=== PATIENT | male | born 1985 | race Caucasian/White ===

== ENCOUNTER 2016-09-29 09:16 | Emergency (ER) | payer MEDICAID, OTHER ==
[~2016-09-29] VITALS: Ht 167.6 cm; Wt 70.0 kg
[~2016-09-29 09:16] MED LIST: BACT800T5 PO; CLIN150 PO
[2016-09-29 09:21] VITALS: BP 134/85; PULSE 95; RESP 16; TEMP 97.4; O2SAT 100
[2016-09-29] MEDS ORDERED: SODIUM CHLOR 0.9% 1000 ML INJ 1,000 ML IV SCH (09:28)
[2016-09-29] MEDS ORDERED: SODIUM CHLORIDE 0.9% FLUSH 10 ML FLUSH IV FLUSH PRN (09:30)
[2016-09-29] MEDS ORDERED: KETOROLAC TROMETHAMINE 30 MG/ML (IVP) VIAL IVP ONE (09:30)
[2016-09-29] MEDS ORDERED: ONDANSETRON HCL 4 MG/2 ML VIAL IVP ONE (09:30)
--- NOTE | 2016-09-29 09:33 | PD ---
HPI Chief Complaint: Complaint Time Seen by Provider: 09:28 Travel History International Travel<30 days: No Contact w/Intl Traveler<30days: No Traveled to known affect area: No History of Present Illness HPI 31-year-old male presents to the ER today with sudden onset of right lower quadrant pains which she currently measures and a 10 out 10 starting at 3 AM. He has been nauseous and vomited, and has had hematuria. He denies any fevers, diarrhea, or any other symptoms. He does not know any exacerbating or alleviating factors. He states the pain is constant. Modifying Factors: None Associated Signs & Symptoms: Right lower quadrant abdominal pains with nausea and vomiting, hematuria Risk Factors: None PFSH Past Medical History Autoimmune Disease: No Cardiovascular Problems: No Diminished Hearing: No Psychiatric: No Integumentary: Yes (RT KNEE CELLULITIS>CLINDAMYCIN) Immunizations Current: Yes Past Surgical History Oral Surgery: Yes (WISDOM TEETH) Other Surgery: Yes (RIGHT KNEE, RIGHT HAND) Social History Alcohol Use: Yes (DAILY) Tobacco Use: Yes (1PPD) Substance Use: No Allergies-Medications (Allergen,Severity, Reaction): Coded Allergies: Augmentin (Verified Allergy, Severe, 09/29/16) Penicillin (Verified Allergy, Severe, 09/29/16) HIVES Reported Meds & Prescriptions Reported Meds & Active Scripts Active No Active Prescriptions or Reported Medications Review of Systems Except as stated in HPI: all other systems reviewed are Neg Physical Exam Narrative GENERAL: Well-developed young white male patient currently in moderate distress secondary to pain. Awake and oriented 3. SKIN: Focused skin assessment warm/dry. HEAD: Atraumatic. Normocephalic. EYES: Pupils equal and round. No scleral icterus. No injection or drainage. ENT: No nasal bleeding or discharge. Mucous membranes pink and moist. NECK: Trachea midline. No JVD. CARDIOVASCULAR: Regular rate and rhythm. No murmur appreciated. RESPIRATORY: No accessory muscle use. Clear to auscultation. Breath sounds equal bilaterally. GASTROINTESTINAL: Abdomen soft, right lower quadrant tenderness without guarding or rebound, nondistended. Hepatic and splenic margins not palpable. GENITOURINARY: Circumcised. Testes descended bilaterally without evidence of rotation. No lesions or erythema. No urethral discharge. MUSCULOSKELETAL: No obvious deformities. No clubbing. No cyanosis. No edema. NEUROLOGICAL: Awake and alert. No obvious cranial nerve deficits. Motor grossly within normal limits. Normal speech. PSYCHIATRIC: Appropriate mood and affect; insight and judgment normal. Data Data Last Documented VS Vital Signs Date Time Temp Pulse Resp B/P Pulse Ox O2 Delivery O2 Flow Rate FiO2 09/29/16 09:36 100 09/29/16 09:21 97.4 95 16 134/85 Orders Complete Blood Count With Diff (09/29/16 09:28) Comprehensive Metabolic Panel (09/29/16:28) Lipase (09/29/16:28) Urinalysis - C+S If Indicated (09/29/16:28) Ct Abd/Pel W/O Iv Contrast (09/29/16:28) Iv Access Insert/Monitor (09/29/16:) Ecg Monitoring (09/29/16:) Oximetry (09/29/16:) Ondansetron Inj (Zofran Inj) (09/29/16 09:30) Sodium Chlor 0.9% 1000 Ml Inj (Ns 1000 M (09/29/16 09:28) Sodium Chloride 0.9% Flush (Ns Flush) (09/29/16 09:30) Ketorolac Inj (Toradol Inj) (09/29/16 09:30) Urine Culture (09/29/16 09:30) Labs Laboratory Tests Test 09/29/16 09:30 White Blood Count 6.0 TH/MM3 Red Blood Count 4.69 MIL/MM3 Hemoglobin 14.9 GM/DL Hematocrit 43.8 % Mean Corpuscular Volume 93.3 FL Mean Corpuscular Hemoglobin 31.9 PG Mean Corpuscular Hemoglobin 34.1 % Concent Red Cell Distribution Width 12.4 % Platelet Count 230 TH/MM3 Mean Platelet Volume 7.7 FL Neutrophils (%) (Auto) 74.6 % Lymphocytes (%) (Auto) 15.9 % Monocytes (%) (Auto) 7.5 % Eosinophils (%) (Auto) 0.9 % Basophils (%) (Auto) 1.1 % Neutrophils # (Auto) 4.3 TH/MM3 Lymphocytes # (Auto) 1.0 TH/MM3 Monocytes # (Auto) 0.5 TH/MM3 Eosinophils # (Auto) 0.1 TH/MM3 Basophils # (Auto) 0.1 TH/MM3 CBC Comment DIFF FINAL Differential Comment Urine Color LIGHT-ORANGE Urine Turbidity CLOUDY Urine pH 5.5 Urine Specific [place] 1.022 Urine Protein 100 mg/dL Urine Glucose (UA) NEG mg/dL Urine Ketones 80 OR GREATER mg/dL Urine Occult Blood LARGE Urine Nitrite NEG Urine Bilirubin NEG Urine Leukocyte Esterase NEG Urine RBC INNUM /hpf Urine WBC 6-8 /hpf Urine Bacteria MOD /hpf Microscopic Urinalysis Comment CULTURE INDICATED Sodium Level 137 MEQ/L Potassium Level 3.5 MEQ/L Chloride Level 101 MEQ/L Carbon Dioxide Level 15.8 MEQ/L Anion Gap 20 MEQ/L Blood Urea Nitrogen 7 MG/DL Creatinine 0.89 MG/DL Estimat Glomerular Filtration 99 ML/MIN Rate Random Glucose 152 MG/DL Calcium Level 9.8 MG/DL Total Bilirubin 0.7 MG/DL Aspartate Amino Transf 290 U/L (AST/SGOT) Alanine Aminotransferase 285 U/L (ALT/SGPT) Alkaline Phosphatase 110 U/L Total Protein 8.2 GM/DL Albumin 4.5 GM/DL Lipase 366 U/L [facility] Medical Decision Making Medical Screen Exam Complete: Yes Emergency Medical Condition: Yes Medical Record Reviewed: Yes Interpretation(s) Laboratory Tests Test 09/29/16 09:30 Neutrophils (%) (Auto) 74.6 % (16.0-70.0) Urine Color LIGHT-ORANGE (YELLW/STRAW) Urine Turbidity CLOUDY (CLEAR) Urine Protein 100 mg/dL (NEG-TRACE) Urine Ketones 80 OR GREATER mg/dL (NEG) Urine Occult Blood LARGE (NEG) Urine RBC INNUM /hpf (0-3) Urine WBC 6-8 /hpf (0-5) Urine Bacteria MOD /hpf (NONE) Carbon Dioxide Level 15.8 MEQ/L (21.0-32.0) Anion Gap 20 MEQ/L (5-15) Random Glucose 152 MG/DL (74-106) Aspartate Amino Transf 290 U/L (15-37) (AST/SGOT) Alanine Aminotransferase 285 U/L (12-78) (ALT/SGPT) Last 24 hours Impressions Abdomen/Pelvis CT 09/29/1628 Signed Impressions: Service Date/Time: Thursday, September 29, 2016 09:45 - CONCLUSION: 1. Patient's symptoms appear to be secondary to pelvocaliectasis and hydroureter of the right renal collecting system. No stone is identified, however. Did the patient recently pass a stone? 2. Diffuse hepatic fatty infiltration. 3. Prior inguinal hernia repair on the left. 4. Dystrophic type prostatic calcifications. Shamir De Paz MD Differential Diagnosis Right lower quadrant abdominal pains, nausea, vomiting, hematuriaUTI/ pyelonephritis versus renal colic versus appendicitis versus gastroenteritis Narrative Course Lab work shows mild elevations of liver enzymes of unknown etiology. However, patient does drink alcohol and has alcohol on his breath currently, may be secondary to alcohol use. Patient has been told about his liver enzyme elevations. His CAT scan is showing signs of right hydronephrosis although a kidney stone is not seen. It is possible he may have recently passed 1. At this point, my plan would be to give him symptomatic relief or pain and nausea, and have him follow-up with urologist regarding this issue. Return for any worsening in symptoms as necessary. The plan has been discussed with him and he states understanding. Diagnosis Primary Impression: Renal colic on right side Additional Impression: Elevated liver enzymes Additional Instructions: Strain urine, follow up with a urologist, and take medications as needed for discomfort. Return for any worsening in pain, fevers, vomiting, or new symptoms as needed. Med/Other Pt SpecificInfo: Prescription(s) given Scripts Alfuzosin ER 24 HR (Uroxatral ER 24 HR)10 Mg Tab10 Mg PO DAILY #7 TAB Ref 0 Prov:Elena Flynn MD 09/29/16 Ondansetron Odt (Zofran Odt)4 Mg Tab4 Mg SL Q6HR PRN (Nausea/Vomiting) #7 TAB Ref 0 Prov:Elena Flynn MD 09/29/16 Tramadol 50 Mg Tab50 Mg PO Q4H PRN (PAIN) #20 TAB Ref 0 Prov:Elena Flynn MD 09/29/16 Ibuprofen (Motrin Ib)200 Mg Uvn914 Mg PO Q6H PRN (PAIN SCALE 1 TO 10) #30 TAB Ref 0 Prov:Elena Flynn MD 09/29/16 Disposition: 01 DISCHARGE HOME Condition: Stable Elena Flynn MD Sep 29, 2016 09:33
[2016-09-29 09:36] VITALS: O2SAT 100
[2016-09-29 09:37] LABS: AUTOMATED NEUTROPHIL # 4.3 TH/MM3 (1.8-7.7); BASOPHIL # 0.1 TH/MM3 (0-0.2); BASOPHIL % 1.1 % (0.0-2.0); EOSINOPHIL # 0.1 TH/MM3 (0-0.4); EOSINOPHIL % 0.9 % (0.0-4.0); HEMATOCRIT 43.8 % (39.0-51.0); HEMO FLAGS DIFF FINAL; LYMPH % 15.9 % (9.0-44.0); MEAN CELL VOLUME 93.3 FL (80.0-100.0); MEAN CORPUSCULAR HEMOGLOBIN 31.9 PG (27.0-34.0); MEAN CORPUSCULAR HGB CONC 34.1 % (32.0-36.0); MONO % 7.5 % (0.0-8.0); NEUT % 74.6 % (16.0-70.0); PLATELET COUNT 230 TH/MM3 (150-450); RED BLOOD COUNT 4.69 MIL/MM3 (4.50-5.90); RED CELL DISTRIBUTION WIDTH 12.4 % (11.6-17.2)
[2016-09-29 09:39] LABS: BLOOD, URINE LARGE (NEG); GLUCOSE,URINE NEG (NEG); NITRITE,URINE NEG (NEG); PH, URINE 5.5 (5.0-8.5)
[2016-09-29 09:46] LABS: KETONE, URINE 80 OR GREATER mg/dL (NEG); RBC, URINE INNUM /hpf (0-3); URINE COLOR LIGHT-ORANGE (YELLW/STRAW)
[2016-09-29 09:49] LABS: BACTERIA, URINE MOD /hpf; COMMENT (UR) CULTURE INDICATED; CULTURE IF INDICATED CULTURE INDICATED
[2016-09-29 09:58] LABS: ALT (GPT) 285 U/L (12-78); BICARBONATE 15.8 MEQ/L (21.0-32.0)
[2016-09-29 09:59] LABS: GLOMERULAR FILTRATION RATE 99 ML/MIN (>89)
[2016-09-29 10:00] LABS: BLOOD UREA NITROGEN 7 MG/DL (7-18); TOTAL BILIRUBIN ADULT 0.7 MG/DL (0.2-1.0)
[2016-09-29 10:01] LABS: ALKALINE PHOSPHATASE 110 U/L (45-117)
[2016-09-29 10:02] LABS: ANION GAP 20 MEQ/L (5-15); CHLORIDE 101 MEQ/L (98-107); POTASSIUM 3.5 MEQ/L (3.5-5.1); SODIUM (NA) 137 MEQ/L (136-145)
[2016-09-29 10:08] LABS: AST (GOT) 290 U/L (15-37)
--- NOTE | 2016-09-29 10:15 | RADHPO ---
EXAM DATE/TIME: 09/29/2016 09:45 [facility] COMPARISON: No previous studies available for comparison. INDICATIONS : Right inguinal pain with gross hematuria. ORAL CONTRAST: No oral contrast ingested. RADIATION DOSE: 9.12 CTDIvol (mGy) MEDICAL HISTORY : None SURGICAL HISTORY : Orthopedic surgery. ENCOUNTER: Initial ACUITY: 1 day PAIN SCALE: 5/10 LOCATION: Right inguinal TECHNIQUE: Volumetric scanning of the abdomen and pelvis was performed. Using automated exposure control and ad justment of the mA and/or kV according to patient size, radiation dose was kept as low as reasonably achievable to obtain optimal diagnostic quality images. FINDINGS: LOWER LUNGS: The visualized lower lungs are clear. LIVER: Homogeneous, but markedly decreased density without lesion. There is no dilation of the biliary tree . No calcified gallstones. SPLEEN: Normal size without lesion. PANCREAS: Within normal limits. KIDNEYS: Right sided pelvocaliectasis and hydroureter but I do not see any renal or ureteric stone. Left kidne y collecting system and ureter are radiographically normal. ADRENAL GLANDS: Within normal limits. VASCULAR: There is no aortic aneurysm. BOWEL/MESENTERY: The stomach, small bowel, and colon demonstrate no acute abnormality. There is no free intraperitone al air or fluid. Retrocecal appendix is otherwise radiographically intact ABDOMINAL WALL: Within normal limits. RETROPERITONEUM: There is no lymphadenopathy. BLADDER: No wall thickening or mass. REPRODUCTIVE: Dystrophic type calcifications in the prostate. INGUINAL: There is no lymphadenopathy or hernia. Findings of a prior left inguinal hernia repair MUSCULOSKELETAL: Within normal limits for patient age. CONCLUSION: 1. Patient's symptoms appear to be secondary to pelvocaliectasis and hydroureter of the right renal c ollecting system. No stone is identified, however. Did the patient recently pass a stone? 2. Diffuse hepatic fatty infiltration. 3. Prior inguinal hernia repair on the left. 4. Dystrophic type prostatic calcifications. Shamir De Paz MD on September 29, 2016 at 10:07 Board Certified Radiologist. This report was verified electronically.
[2016-09-29] MEDS ORDERED: MOTR200T4 PO (10:39)
[2016-09-29] MEDS ORDERED: UROX10TA3 PO (10:39)
[2016-09-29] MEDS ORDERED: ZOFR4TAB3 SL (10:39)
[2016-09-29] MEDS ORDERED: TRAM50TA PO (10:39)
[2016-09-29 10:54] VITALS: BP 150/78
== END 2016-09-29 10:55 | disposition home or self-care (01) ==
LOC: PHED 09:16
DX: N23 Unspecified renal colic (principal); R74.8 Abnormal levels of other serum enzymes; F17.210 Nicotine dependence, cigarettes, uncomplicated; F10.10 Alcohol abuse, uncomplicated
CPT/HCPCS: 74176; 80053; 81001; 83690; 85025; 87086; 96361; 96374; 96375; 99284; J1885; J2405; J7030

== ENCOUNTER 2017-04-15 14:10 | Emergency (ER) | payer SELFPAY ==
[~2017-04-15] VITALS: Ht 167.6 cm; Wt 74.0 kg
[~2017-04-15 14:10] MED LIST changes: +ALFU1TAB14 PO; -BACT800T5 PO; -CLIN150 PO; +MOTR200T4 PO; +TRAM50TA PO; +ZOFR4TAB3 SL
[2017-04-15 14:27] VITALS: BP 152/91; PULSE 101; RESP 16; TEMP 98.5; O2SAT 96
--- NOTE | 2017-04-15 15:46 | RADRPT ---
EXAM DATE/TIME: 04/15/2017 15:25 [facility] COMPARISON: No previous studies available for comparison. INDICATIONS : Right humerus pain, bruising after patient was throwing a football 3 days ago MEDICAL HISTORY : None. SURGICAL HISTORY : None. ENCOUNTER: Initial ACUITY: 3 days PAIN SCORE: 8/10 LOCATION: Right entire humerus FINDINGS: Two view examination of the right humerus demonstrates no evidence of fracture or dislocation. Bony mineralization is normal. The soft tissue structures are intact. CONCLUSION: Negative for fracture or dislocation. Follow up in 7-10 days is suggested if symptoms persist. Choco Smith MD FACR on April 15, 2017 at 15:41 Board Certified Radiologist. This report was verified electronically.
[2017-04-15] MEDS ORDERED: NAPR500 PO (16:04)
--- NOTE | 2017-04-15 16:04 | PD ---
HPI . Right arm injury Chief Complaint: Injury Time Seen by Provider: 14:37 Travel History International Travel<30 days: No Contact w/Intl Traveler<30days: No Traveled to known affect area: No History of Present Illness HPI 32-year-old male patient presents emergency department for evaluation of a right upper arm injury that occurred yesterday when he was throwing a football. Patient reports that he heard a loud pop in his right arm. Patient states the cough was so loud it reminded him of a firework. Subsequent to the lab pop patient has had tremendous posterior upper arm pain and ecchymosis that extends from the axilla of the posterior upper arm down to the elbow and around the lateral sides of the arm. Patient is right-hand dominant and has subsequent weakness in his right arm. The right hand is neurovascularly intact. Patient denies any paresthesias. Patient denies any major medical history. Patient denies any other injuries with this event. PFSH Past Medical History Autoimmune Disease: No Cardiovascular Problems: No Diminished Hearing: No Psychiatric: No Integumentary: Yes (RT KNEE CELLULITIS>CLINDAMYCIN) Immunizations Current: Yes Past Surgical History Oral Surgery: Yes (WISDOM TEETH) Other Surgery: Yes (RIGHT KNEE, RIGHT HAND) Social History Alcohol Use: Yes (DAILY) Tobacco Use: Yes (1PPD) Substance Use: No Allergies-Medications (Allergen,Severity, Reaction): Coded Allergies: amoxicillin (Unverified Allergy, Severe, 04/15/17) clavulanic acid (Unverified Allergy, Severe, 04/15/17) penicillin G (Unverified Allergy, Severe, 04/15/17) HIVES Reported Meds & Prescriptions Reported Meds & Active Scripts Active [place] (Hydrocodone-Acetaminophen) 5-325 mg Tab 1 Tab PO Q4H PRN Naprosyn (Naproxen) 500 Mg Tab 500 Mg PO BID 10 Days Review of Systems Except as stated in HPI: all other systems reviewed are Neg Physical Exam Narrative GENERAL: Well-nourished, well-developed 32-year-old male patient in no acute distress. Nontoxic appearing. SKIN: Significant ecchymosis noted to the posterior right arm extending from the axilla down to the elbow and around the lateral aspect of the arm. HEAD: Normocephalic. Atraumatic.. NECK: Supple, trachea midline. No JVD or lymphadenopathy. CARDIOVASCULAR: Regular rate and rhythm without murmurs, gallops, or rubs. +2 radial pulses bilaterally. RESPIRATORY: Breath sounds equal bilaterally. No accessory muscle use. GASTROINTESTINAL: Abdomen soft, non-tender, nondistended. MUSCULOSKELETAL: Right arm limited range of motion with extension of the elbow. Full range of motion with flexion of the elbow. Significant ecchymosis noted to the posterior aspect of the right upper arm. Full muscular strength with biceps curls, limited muscular strength with triceps extension. BACK: Nontender without obvious deformity. No CVA tenderness. Data Data Last Documented VS Vital Signs Date Time Temp Pulse Resp B/P (MAP) Pulse Ox O2 Delivery O2 Flow Rate FiO2 04/15/17 14:27 98.5 101 16 152/91 (111) 96 Orders Orders Humerus (Min 2vws) (04/15/17 15:16) Ice/Cold Pack (04/15/17 15:17) Ed Discharge Order (04/15/17 16:04) Mandatory Outpatient Referral (04/15/17 16:11) Splint Or Brace Apply/Monitor (04/15/17 16:11) Sling Cradle Arm (04/15/17 ) MDM Medical Decision Making Medical Screen Exam Complete: Yes Emergency Medical Condition: Yes Differential Diagnosis Differential diagnoses include but not limited to muscular strain, muscular screen, ligamental damage, tendon rupture, tendon tear Narrative Course 32-year-old male patient presents emergency department for evaluation of right upper arm pain, significant ecchymosis that extends from the posterior aspect of the axilla down to the elbow and around the lateral sides. Patient has full range of motion and strength with bicep curls and limited range of motion and strength with triceps extension. The right hand is neurovascularly intact. The area of ecchymosis is soft and tender. There is no signs or symptoms of compartment syndrome at this time. The right hand is neurovascularly intact. Radial pulse are palpable. X-ray of the right humerus ordered to rule out an avulsion fracture. Ice applied to right upper arm. X-ray shows no fracture or dislocation. Patient is given a mandatory referral for orthopedics due to his lack of insurance and needs to follow-up. Patient is discharged home with a sling to the right arm in place, a prescription for naproxen and [place] for pain management and instructions to follow up with orthopedics when they call to make the appointment and to return to the emergency Department with any worsening condition. Diagnosis Primary Impression: Rupture of triceps tendon Qualified Codes: S46.311A - Strain of muscle, fascia and tendon of triceps, right arm, initial encounter Referrals: Chaz Kaufman Jr., MD Patient Instructions: General Instructions, Tendon Rupture (ED) Additional Instructions: Please return to emergency department if your symptoms return or worsen. Follow up with your primary care provider. Rest, ice, elevate right arm when resting. Mandatory referral for orthopedics. Take your medication as prescribed. Scripts Hydrocodone-Acetaminophen ([place]) 5-325 mg Tab 1 TAB PO Q4H Y for PAIN, #12 TAB 0 Refills Prov: Tavares Fernandes MD 04/15/17 Naproxen (Naprosyn) 500 Mg Tab 500 MG PO BID for 10 Days, #20 TAB 0 Refills Prov: Yennifer Wynn 04/15/17 Disposition: 01 DISCHARGE HOME Condition: Stable Yennifer Wynn Apr 15, 2017 16:04
[2017-04-15] MEDS ORDERED: NORC5TAB PO (16:06)
== END 2017-04-15 16:25 | disposition home or self-care (01) ==
LOC: PHEFT 14:10
DX: S46.311A Strain of muscle, fascia and tendon of triceps, right arm, initial encounter (principal); X50.9XXA Other and unspecified overexertion or strenuous movements or postures, initial encounter; Y93.61 Activity, american tackle football
CPT/HCPCS: 73060; 99283

== ENCOUNTER 2017-10-20 16:18 | Emergency (ER) | payer OTHER ==
[2017-10-20] MEDS: KETOROLAC TROMETHAMINE 60 MG/2 ML (IM) VIAL IM (17:37)
== END 2017-10-20 17:47 | disposition home or self-care (01) ==
LOC: PHEFT 16:18
DX: S60.031A Contusion of right middle finger without damage to nail, initial encounter (principal); F17.200 Nicotine dependence, unspecified, uncomplicated; W23.0XXA Caught, crushed, jammed, or pinched between moving objects, initial encounter; Z85.828 Personal history of other malignant neoplasm of skin; Z88.0 Allergy status to penicillin; Z88.8 Allergy status to other drugs, medicaments and biological substances; Z79.899 Other long term (current) drug therapy
CPT/HCPCS: 11740; 73130; 96372; 99283-25